=== PATIENT | female | born 1985 | race Hispanic/Latino ===

== ENCOUNTER 2018-07-14 14:00 | Emergency (ER) | payer OTHER ==
[~2018-07-14] VITALS: Ht 167.6 cm; Wt 136.1 kg
[2018-07-14] MEDS ORDERED: FENTANYL CITRATE PF 50 MCG/1 ML 2ML VIAL ONE ×2 (15:57→16:37)
[2018-07-14] MEDS ORDERED: KETAMINE HCL 100 MG/ML 5ML VIAL IJ ONE ×2 (16:18→16:30)
== END 2018-07-14 17:50 | disposition home or self-care (01) ==
LOC: EDH 14:00
DX: S53.125A Posterior dislocation of left ulnohumeral joint, initial encounter (principal); W18.39XA Other fall on same level, initial encounter; Y93.01 Activity, walking, marching and hiking; Y92.89 Other specified places as the place of occurrence of the external cause; Y99.8 Other external cause status
CPT/HCPCS: 24600; 73060; 73070 ×3; 73080; 73090; 81025; 96374; 96376; 99152; 99153; 99285; J3010 ×2; J3490